=== PATIENT | female | born 1970 | race Hispanic/Latino ===

== ENCOUNTER 2019-06-19 15:08 | Inpatient (IN) | payer OTHER ==
[~2019-06-19] VITALS: Ht 167.6 cm; Wt 87.1 kg
[2019-06-19] MEDS ORDERED: ONDANSETRON HCL 4 MG/2 ML VIAL ONE (15:15)
[2019-06-19] MEDS ORDERED: MORPHINE SULFATE 4 MG/1ML SYG ONE (15:16)
[2019-06-19] MEDS ORDERED: HYDROMORPHONE 1 MG/1 ML AMP ONE (15:52)
[2019-06-19 16:24] LABS: BASOPHILS % (AUTO) 1.1 % (0.0-5.0); EOSINOPHILS % (AUTO) 1.5 % (0.0-8.0); HEMATOCRIT 39.8 % (36-48); LYMPHOCYTES % (AUTO) 31.2 % (21.0-51.0); MEAN CORPUSCULAR HGB CONC 34.2 g/dL (32.0-36.0); MEAN CORPUSCULAR VOLUME 96.6 fL (79-99); NEUTROPHILS % (AUTO) 58.2 % (40.0-77.0); PLATELET COUNT (AUTO) 246 K/uL (130-400); RED BLOOD CELL COUNT(AUTO) 4.12 MIL/uL (4.00-5.50); RED CELL DISTRIBUTION WIDTH 12.7 % (11.0-15.5); WHITE BLOOD COUNT (AUTO) 6.1 K/uL (4.8-10.8)
[2019-06-19 16:35] LABS: CREATININE 0.9 mg/dL (0.5-1.5); POTASSIUM 4.1 mmol/L (3.5-5.1)
[2019-06-19 16:40] LABS: ALBUMIN 3.7 g/dL (3.5-5.0); BILIRUBIN,TOTAL 0.4 mg/dL (0.2-1.0); TOTAL PROTEIN, SERUM 7.4 g/dL (6.0-8.3)
[2019-06-19] MEDS ORDERED: HYDRALAZINE HCL 20 MG/ML VIAL IV PRN (17:30)
[2019-06-19] MEDS ORDERED: MORPHINE SULFATE 4 MG/1ML SYG IV PRN (17:30)
[2019-06-19] MEDS ORDERED: ACETAMINOPHEN 325 MG TAB PO PRN ×2 (17:30)
[2019-06-19] MEDS: FAMOTIDINE/PF 20 MG/2 ML VIAL IV SCH (21:00)
[2019-06-19] MEDS ORDERED: MORPHINE SULFATE 2 MG/ML 1ML SYG ONE (21:11)
[2019-06-19] MEDS ORDERED: FAMOTIDINE/PF 20 MG/2 ML VIAL IV ONE (21:12)
--- NOTE | 2019-06-19 21:25 | NUR ---
PT ADMISSION. PT ADMITTED INTO ROOM 405 FROM ER, TRANSFERRED VIA STRETCHER. PT AWAKE, ALERT AND RESPONSIVE. C/O PAIN TO RT KNEE WITH MOVEMENT. RIGHT KNEE OBSERVED EDEMATOUS, WITH BRUISING, NO OPEN AREA OBSERVED. PT AND SPOUSE AT BEDSIDE ORIENTED TO ROOM, CALL NAJERA WITHIN REACH, BED IN LOWEST POSITION. Addendum: 06/19/19 at 2143 by CHRIS RITTER RN Amended: Links added.
[2019-06-20 00:09] VITALS: BP 113/61
[2019-06-20] MEDS: ONDANSETRON HCL 4 MG/2 ML VIAL IV PRN ×2 (02:03→07:40)
[2019-06-20] MEDS: MORPHINE SULFATE 2 MG/ML 1ML SYG IV PRN ×2 (02:03→07:40)
[2019-06-20 04:00] VITALS: BP 117/62
[2019-06-20 05:27] LABS: BASOPHILS % (AUTO) 0.5 % (0.0-5.0); EOSINOPHILS % (AUTO) 1.5 % (0.0-8.0); HEMATOCRIT 35.2 % (36-48); LYMPHOCYTES % (AUTO) 40.5 % (21.0-51.0); MEAN CORPUSCULAR HEMOGLOBIN 33.8 pg (27.0-33.0); MEAN CORPUSCULAR HGB CONC 35.3 g/dL (32.0-36.0); MEAN CORPUSCULAR VOLUME 95.8 fL (79-99); MONOCYTES % (AUTO) 9.3 % (3.0-13.0); NEUTROPHILS % (AUTO) 48.2 % (40.0-77.0); NUCLEATED RED BLOOD CELLS 0.1 % (0.0-0.19); PLATELET COUNT (AUTO) 259 K/uL (130-400); RED BLOOD CELL COUNT(AUTO) 3.67 MIL/uL (4.00-5.50); RED CELL DISTRIBUTION WIDTH 12.7 % (11.0-15.5); WHITE BLOOD COUNT (AUTO) 7.2 K/uL (4.8-10.8)
[2019-06-20 05:32] LABS: HEMOGLOBIN A1C 5.4 % (4.0-6.0); POTASSIUM 3.9 mmol/L (3.5-5.1)
[2019-06-20 07:30] VITALS: BP 101/52
[2019-06-20] MEDS ORDERED: ENOXAPARIN SODIUM 40 MG/0.4 ML SYRINGE SQ SCH (09:00)
[2019-06-20] MEDS: FAMOTIDINE/PF 20 MG/2 ML VIAL IV SCH (09:22)
--- NOTE | 2019-06-20 09:30 | NUR ---
ORDER PLACED UNDER "[facility]ARRY"WAS WRITTEN BY ME Mary WILSON. ERROR IN USERNAME
[2019-06-20 11:00] VITALS: BP 111/61
[2019-06-20] MEDS ORDERED: TYL3 PO (11:29)
--- NOTE | 2019-06-20 11:30 | NUR ---
PT MADE AWARE OF PT EVAL ORDER
[2019-06-20] MEDS ORDERED: KETOROLAC TROMETHAMINE 30MG/ML IM SCH (12:00)
--- NOTE | 2019-06-20 15:00 | NUR ---
CM NOTE ADVISED PT DISCHARGED, NO TRIGGERES TO CM,NO CONCNERS VOICED, WILL FOLLOW UP W DR. KU, Addendum: 06/21/19 at 0858 by ASHUTOSH CHIN RN CM Amended: Links added.
[2019-06-20 16:00] VITALS: BP 95/61
--- NOTE | 2019-06-20 16:33 | NUR ---
PT D/C WITH TEACH BACK SUCCESSFULLY IV REMOVED, CATHETER INTACT KNEE IMMOBILIZER ON PT EDUCATED TO TONY BLACK
== END 2019-06-20 16:40 | disposition home or self-care (01) | DRG 563 ==
LOC: EDH 15:08 → EDHIP 15:09 → 4BH 19:56
PROVIDERS: ADMIT Internal Medicine; ATTEND Internal Medicine
DX: S82.001A Unspecified fracture of right patella, initial encounter for closed fracture (principal); W01.0XXA Fall on same level from slipping, tripping and stumbling without subsequent striking against object, initial encounter; Y93.89 Activity, other specified; Y92.89 Other specified places as the place of occurrence of the external cause; Y99.8 Other external cause status; Z90.710 Acquired absence of both cervix and uterus; Z87.891 Personal history of nicotine dependence; Z83.3 Family history of diabetes mellitus; Z80.6 Family history of leukemia; Z83.79 Family history of other diseases of the digestive system
CPT/HCPCS: 36415; 73562; 80048; 80053; 83036; 85025; G0378; J1170; J1650; J1885; J2270; J2405; J3490